=== PATIENT | female | born 1965 | race Caucasian/White ===

== ENCOUNTER 2018-03-16 09:52 | Emergency (ER) | payer BC ==
--- NOTE | 2018-03-16 10:16 | ED Physician Documentation ---
Fall - HISTORIAN Historian: patient - HPI Stated Complaint: Right rib pain Chief Complaint: Fall Additional Information: Fell onto ground when she moved a picnic table last evening. Deep breath hurts. No treatment attempted. No other associated signs. Where: home Context: slipped - ROS CONST: no problems - PAST HX Past History: other (HTN, not treated) Allergies/Adverse Reactions: Allergies Allergy/AdvReac Type Severity Reaction Status Date / Time No Known Allergies Allergy Verified 03/16/18 10:02 Home Medications: Ambulatory Orders Medication Instructions Recorded NK 03/16/18 - SOCIAL HX Smoking History: cigarettes (1 PPD) Alcohol Use: other (12 pack/week) Drug Use: methamphetamines (none for 13 years) - FAMILY HX Family History: no significant history - VITAL SIGNS Vital Signs: Vital Signs Temp Pulse Resp BP Pulse Ox 98.1 F 78 18 168/96 97 03/16/18 10:03 03/16/18 10:03 03/16/18 10:03 03/16/18 10:03 03/16/18 10:03 - REVIEWED ASSESSMENTS Nursing Assessment Reviewed: Yes Vitals Reviewed: Yes Progress - Progress Progress: Report Submission Date: Mar 16, 2018 11:00:27 AM CDT Patient Study Name: CYNDIE TINEO Date: Mar 16, 2018 10:31:35 AM CDT Modality Type: DX Gender: F Description: CHEST : 65 Institution: [facility] Physician: RAMANA CHAUDHRY - ER A single view chest and 3 views right ribs Clinical history: Right rib pain Findings: The lungs are clear. Heart size is normal. No displaced rib fractures identified. Impression: Negative Electronically signed on Mar 16, 2018 11:00:27 AM CDT by: Maged Bowen ED Results Lab/Radiology - Orders Orders: ED Orders Category Date Time Status RIBS UNILATERAL W/ PA CHEST [RAD] Stat Exams 03/16/18 Ordered Fall Physical Exam - Physical Exam General Appearance: alert, mild distress (anxious) Head: no swelling, no obvious injury Neck: painless ROM Eye: lids & conjunct. nml ENT: nml external inspection Resp/CVS: no ecchymosis, breath sounds nml, heart sounds nml, other (points to area under right breast as site of pain) Neuro: CN's nml as tested, sensation nml, motor nml Skin: color nml, warm, dry Back: normal inspection, no CVA tenderness, no vertebral tenderness Extremities: atraumatic, pelvis stable Joint: Nml gait/weight bearing Discharge Clincal Impression: Contusion Qualifiers: Encounter type: initial encounter Contusion area: thoracic wall Contusion of thoracic wall detail: front wall of thorax Laterality: right Qualified Code(s): S20.211A - Contusion of right front wall of thorax, initial encounter Referrals: Gary Cox MD [Primary Care Provider] - 2 Days Condition: Good Disposition: 01 HOME, SELF-CARE Decision to Admit: NO Decision Time: 11:05
[2018-03-16 11:33] VITALS: BP 117/83
--- NOTE | 2018-03-16 13:26 | Diagnostic Imaging Report ---
RAMANA CHAUDHRY [facility] [address] [facility] [address] [place] [address]. [id number] Report Submission Date: Mar 16, 2018 11:00:27 AM CDT Patient Study Name: CYNDIE TINEO Date: Mar 16, 2018 10:31:35 AM CDT Modality Type: DX Gender: F Description: CHEST : 65 Institution: [facility] Physician: RAMANA CHAUDHRY A single view chest and 3 views right ribs Clinical history: Right rib pain Findings: The lungs are clear. Heart size is normal. No displaced rib fractures identified. Impression: Negative Electronically signed on Mar 16, 2018 11:00:27 AM CDT by: Maged ALVARES
== END 2018-03-16 11:08 | disposition home or self-care (01) ==
LOC: ED 09:52
DX: S20.211A Contusion of right front wall of thorax, initial encounter (principal); W19.XXXA Unspecified fall, initial encounter; Y92.017 Garden or yard in single-family (private) house as the place of occurrence of the external cause; Y93.9 Activity, unspecified; Y99.9 Unspecified external cause status
CPT/HCPCS: 71101